=== PATIENT | female | born 1990 | race Hispanic/Latino ===

== ENCOUNTER 2023-07-18 20:47 | Emergency (ER) | payer MEDICARE ==
[~2023-07-18] VITALS: Ht 152.4 cm; Wt 79.4 kg
[2023-07-18 23:45] VITALS: BP 122/76; PULSE 79; RESP 18; TEMP 98.6; O2SAT 99
== END 2023-07-18 23:45 | disposition home or self-care (01) ==
LOC: FSED 20:59
DX: O20.0 Threatened abortion (principal)
CPT/HCPCS: 76801; 80048; 81003; 81025; 85025; 99283